=== PATIENT | male | born 2000 | race Two or more races ===

== ENCOUNTER 2022-04-17 15:49 | Emergency (ER) | payer SELFPAY ==
[~2022-04-17] VITALS: Ht 177.8 cm; Wt 79.5 kg
[2022-04-17 15:50] VITALS: BP 122/61
== END 2022-04-17 19:20 | disposition left against medical advice (07) ==
LOC: M ED 15:49
DX: Z53.21 Procedure and treatment not carried out due to patient leaving prior to being seen by health care provider (principal)

== ENCOUNTER → 2022-09-28 | Outpatient (REF) | payer OTHER | LOC: M SMT 13:17 | PROVIDERS: ATTEND Urology | DX: D29.0 Benign neoplasm of penis (principal) ==